=== PATIENT | female | born 1980 | race Caucasian/White ===

== ENCOUNTER 2022-06-14 16:07 | Emergency (ER) | payer MEDICAID ==
[~2022-06-14] VITALS: Ht 154.9 cm; Wt 57.7 kg
[2022-06-14 17:54] VITALS: BP 151/91
[2022-06-14 19:16] LABS: BASOPHILS % (AUTO) 0.5 % (0.0-2.0); EOSINOPHILS # (AUTO) 0.1 K/uL (0-0.4); HEMATOCRIT 39.4 % (36-48); LYMPHOCYTES # (AUTO) 2.9 K/uL (2.5-16.5); LYMPHOCYTES % (AUTO) 43.7 % (20.5-51.1); MEAN CORPUSCULAR HEMOGLOBIN 28 pg (27-31); MEAN CORPUSCULAR HGB CONC 33 g/dL (33-37); MEAN CORPUSCULAR VOLUME 85.1 fL (80-94); MONOCYTES # (AUTO) 0.4 K/uL (0.8-1.0); MONOCYTES % (AUTO) 6.2 % (1.7-9.3); NEUTROPHILS # (AUTO) 3.1 K/uL (1.8-7.7); NEUTROPHILS % (AUTO) 47.6 % (42.2-75.2); PLATELET COUNT (AUTO) 290 K/uL (140-450); RED BLOOD CELL COUNT(AUTO) 4.63 MIL/uL (4.20-5.40); RED CELL DISTRIBUTION WIDTH 12.4 % (11.6-13.7); WHITE BLOOD COUNT (AUTO) 6.6 K/uL (4.8-10.8)
[2022-06-14 19:43] LABS: ALBUMIN 3.9 g/dL (3.4-5.0); ANION GAP 11.7 (8-16); CARBON DIOXIDE 30.1 mmol/L (21-32); POTASSIUM 3.8 mmol/L (3.5-5.1); TOTAL BILIRUBIN 0.2 mg/dL (0.0-1.0)
--- NOTE | 2022-06-14 22:20 | NUR ---
SEEN AND EXAMINED BY JOSE
[2022-06-14] MEDS ORDERED: ONDANSETRON 4 MG ODT PO ONE (22:35)
[2022-06-14] MEDS ORDERED: ALUMINUM HYD/MAG/SIMETHICONE 30 ML UDC PO ONE (22:35)
--- NOTE | 2022-06-14 22:44 | NUR ---
PATIENT MEDICATED PER ORDERS. TOLERATED WELL. PLACED IN LOBBY
--- NOTE | 2022-06-14 23:08 | NUR ---
TO BED 2
--- NOTE | 2022-06-14 23:14 | NUR ---
PATIENT STATED THAT MEDICATION HELPED AND PAIN HAS SUBSIDED.
--- NOTE | 2022-06-14 23:19 | NUR ---
42/F BIB SELF C/C UPPER ABD PAIN X2DAYS. + DIARRHEA + H[place]UTT +NAUSEA. PATIENT DENIES CHILLS/FEVER/V/C AT THIS TIME. PATIENT TAKEN TO BED 2 AND PLACED ON BEDSIDE MONITOR. BED LOW AND LOCKED. CASSI SIDE RAILS FOR SAFETY. CALL LIGHT IN REACH. ALL NEEDS MET. LMP 12/10 DENIES PMHX NKA
--- NOTE | 2022-06-14 23:19 | NUR ---
US AT BEDSIDE
--- NOTE | 2022-06-15 | NUR ---
ERMD AT BEDSIDE
[2022-06-15] MEDS ORDERED: FAMO-90 PO (00:03)
[2022-06-15] MEDS ORDERED: ONDA-188 SL (00:03)
[2022-06-15 00:19] VITALS: BP 123/72
--- NOTE | 2022-06-15 00:19 | NUR ---
Patient discharged with v/s stable. Written and verbal after care instructions given and explained. Patient alert, oriented and verbalized understanding of instructions. Ambulatory with steady gait. All questions addressed prior to discharge. ID band removed. Patient advised to follow up with PMD. Rx of PEPCID, ZOFRAN given. Patient educated on indication of medication including possible reaction and side effects. Opportunity to ask questions provided and answered.
== END 2022-06-15 00:14 | disposition home or self-care (01) ==
LOC: MED 16:07
DX: R10.13 Epigastric pain (principal)
CPT/HCPCS: 36415; 76705; 80053; 81025; 83690; 85025; 99284; Q0092; Q0162